=== PATIENT | male | born 1945 | race Caucasian/White ===

== ENCOUNTER 2017-01-04 06:16 | Day surgery (SDC) | payer OTHER, MEDICARE ==
[2017-01-04] MEDS ORDERED: ACETAMINOPHEN 325 MG TAB PO PRN (06:22)
[2017-01-04] MEDS ORDERED: ASPIRIN EC 325 MG TAB PO ONE (06:22)
[2017-01-04] MEDS ORDERED: NS 1,000 ML IV SCH (06:22)
[2017-01-04] MEDS ORDERED: NITROGLYCERIN 0.4 MG BTL SL PRN ×2 (06:22→08:24)
--- NOTE | 2017-01-04 06:42 | CPEKG ---
Heart Rate: 84 RR Interval: 714 P-R Interval: 160 QRSD Interval: 108 QT Interval: 404 QTC Interval: 478 P [place]: 44 QRS [place]: -73 T Wave [place]: 104 EKG Severity - ABNORMAL ECG - EKG Impression: VENTRICULAR-PACED COMPLEXES EKG Impression: AGREE WITH ABOVE. NO SIGNIFICANT CHANGE FROM 2015. Electronically Signed By: Mak Faulkner 04-Jan-2017 07:40:23
[2017-01-04 06:54] LABS: % IMMATURE GRANULYOCYTES 0.7 % (0.0-1.1); ABSOLUTE IMMATURE GRANULOCYTES 0.05 10^3/uL (0.00-0.10); ADD DIFF? NO; ADD MORPH? NO; ADD SCAN? NO; ATYPICAL LYMPHOCYTE FLAG 0 (0-99); FRAGMENT RBC FLAG 0 (0-99); HEMATOCRIT 46.3 % (40.0-51.0); HEMOGLOBIN 16.2 g/dL (13.7-17.5); LEFT SHIFT FLG 0 (0-99); LIPEMIA HEMOLYSIS FLAG 90 (0-99); MEAN CELL HEMOGLOBIN 29.7 pg (27.9-34.1); MEAN CELL VOLUME 84.8 fL (81.5-99.8); MEAN PLATELET VOLUME 11.1 fL (8.7-11.7); PLATELET CLUMPS FLAG 0 (0-99); PLATELET COUNT 208 10^3/uL (150-400); RED BLOOD CELL COUNT 5.46 10^6/uL (4.40-6.38); RED CELL DISTRIBUTION WIDTH 13.2 % (11.5-15.2)
[2017-01-04 07:04] LABS: INR 1.08 (0.83-1.16); PROTIME(PATIENT) 13.9 SEC (12.0-15.0)
[2017-01-04 07:05] LABS: APTT 31.5 SEC (23.0-38.0)
[2017-01-04 07:15] LABS: ANION GAP 12 mEq/L (8-16); CALCIUM 9.4 mg/dL (8.5-10.4); CARBON DIOXIDE 24 mEq/l (22-31); CHLORIDE 104 mEq/L (97-110); CHOLESTEROL 206 mg/dL (140-220); CHOLESTEROL/HDL RATIO 5.28 RATIO (1.00-4.97); CREATININE 1.2 mg/dL (0.7-1.3); GLOMERULAR FILTRATION RATE 60; GLUCOSE 107 mg/dL (70-100); HIGH DENSITY LIPOPROTEIN 39 mg/dL (40-65); LDL/HDL RATIO 3.49 RATIO (1.00-3.64); LOW DENSITY LIPOPROTEIN 136 mg/dL (80-100); MAGNESIUM 1.9 mg/dL (1.6-2.3); NON-HIGH DENSITY LIPOPROTEIN 167 mg/dL (90-129); POTASSIUM 4.2 mEq/L (3.5-5.2); SODIUM 140 mEq/L (134-144); TRIGLYCERIDE 159 mg/dL (40-150); VERY LOW DENSITY LIPOPROTEINS 31 mg/dL (8-25)
[2017-01-04] MEDS ORDERED: fentaNYL 100 MCG/2 ML INJ ONE (07:42)
[2017-01-04] MEDS ORDERED: LIDOCAINE 1% 300 MG/30 ML SDV ONE (07:42)
[2017-01-04] MEDS ORDERED: MIDAZOLAM 2 MG/2 ML VIAL ONE (07:43)
[2017-01-04] MEDS ORDERED: IOPAMIDOL (ISOVUE-370) 150 ML BTL IV ONE (07:43)
--- NOTE | 2017-01-04 07:51 | PDHPUP ---
History & Physical Update H&P update statement: This history and physical update is based on an assessment of the patient which was completed after admission or registration (within 24 hours), but prior to the surgery/procedure.
--- NOTE | 2017-01-04 07:53 | PDPROPOC ---
Sedation Plan of Care Sedation Plan of Care: vital signs stable ASA Classification: ASA 3 Planned drugs: fentanyl, midazolam Mallampati Score: Class 2 Mallampati Reference Image: Patient passed 3-3-2 rule?: Yes
[2017-01-04] MEDS ORDERED: ONDANSETRON 4 MG/2 ML VIAL IVP PRN (08:24)
[2017-01-04] MEDS ORDERED: ATROPINE SULFATE 1 MG/10 ML SYR IVP PRN (08:24)
--- NOTE | 2017-01-04 08:31 | SOAPPROG ---
DMITRI Progress Note Assessment/Plan: Assessment: right heart cath with swan minesh catheterization done via Right IJ vein uneventfully. Cardiac cath dictated. Plan: 1)discharge home in two hours. 2)decrease lasix from 40mg po qam to 20mg qam. 3)rest of meds without changes. 4)f/u [facility]F-[facility] in two weeks to reassess. 01/04/17 08:30 Objective: Laboratory Results 01/04/17 06:41 01/04/17 06:41 PT 13.9 SEC (12.0-15.0) 01/04/17 06:41 INR 1.08 (0.83-1.16) 01/04/17 06:41 ICD10 Worksheet Patient Problems: Problems Problem Status Onset Chest pain Acute Dyspnea Acute NICM (nonischemic cardiomyopathy) Acute Pericardial effusion Acute
--- NOTE | 2017-01-04 09:26 | CPIP ---
[f rep st] INVASIVE CARDIAC PROCEDURE DATE OF PROCEDURE: 01/04/2017 PROCEDURE PERFORMED: Right heart catheterization via the right internal jugular vein, with monitorin g [place] catheter hemodynamics. INDICATIONS: Chronic severe nonischemic cardiomyopathy with worsening fatigue and shortness of breat h. Evaluate filling pressures. CONSENT: Signed. Risks, benefits, and alternatives discussed with patient and his . They wishe d to proceed. MEDICATIONS USED DURING PROCEDURE: Lidocaine 7 cc to local skin, plus Versed 1 mg IV and fentanyl 25 mcg IV, with continuous pulse oximetry and hemodynamic monitoring. TECHNICAL DIFFICULTIES: None. DESCRIPTION OF PROCEDURE AND RESULTS: The patient was brought to the labels molder. After adequate sedat ion and sterile prepping of the right neck, a 5-[place] sheath was easily placed in the right internal jugular vein. A monitoring [place] catheter was advanced through the right heart chambers, carefu lly avoiding the pacer wires under fluoroscopy. After hemodynamics were done, the [place] catheter was removed, and the sheath was removed with manual hemostasis. He tolerated the procedure well. RIGHT HEART HEMODYNAMICS: The mean RA is 6, RV 19/6, PA pressure 23/15, with a mean pulmonary artery pressure of 17. The mean pulmonary capillary wedge pressure was 12. The cardiac output and cardiac index estimated by Mark method was 5.8 and 3.0 L/minute, respectively. The estimated arterial satur ation on room air was 95%, and the measured pulmonary artery saturation 77.9%. COMPLICATIONS: None. In particular, fluoroscopy at the end of the case demonstrated no dislodgement of pacer wires and no change in the heart size. There was no evidence of a right apical pneumothora x. IMPRESSIONS: Compensated to slightly dry right heart pressures. NOTE: The patient's home Lasix dose will be decreased from 40 mg to 20 mg per day. The rest of the medications will be unchanged, and he will follow up in the heart failure clinic in 2 weeks to see if he is feeling better. /[id number]/MODL
--- NOTE | 2017-01-04 15:59 | ECHO ---
[email or web address] [address] [address] Main: [phone] Fax: Transthoracic Echocardiogram Name: TEO MILLER MR#: [id number] Study Date: 01/04/2017 Study Time: 09:19 AM Date of : 1945 Age: 71 year(s) Height: 172.7 cm (68 in.) Weight: 81.65 kg (180 lb.) BSA: 1.95 m2 Gender: Male Examination: Echo Indication: Post right heart cath, known cardiomyopathy Image Quality: Contrast: Requested by: Pola Patrick BP: 84 mmHg/56 mmHg Heart Rate: Rhythm: Normal sinus rhythm Indication: Post right heart cath, known cardiomyopathy Procedure Staff Strap Cutting Machine Operator: Gerald Otto Reading Physician: Danilo Desai Requesting Provider: Conclusions: Severely dilated left ventricle. Severely reduced systolic LV function. The ejection fraction is estimated to be 15-20 %. All scored wall segments are hypokinetic. There is a pacemaker lead noted in the right ventricle. The left atrium is mildly dilated. The right atrium is mildly dilated. Mild mitral valve regurgitation is present. Mild to moderate aortic valve regurgitation. Trivial tricuspid valve regurgitation. Measurements: Chambers Valvular Assessment AV/MV Valvular Assessment TV/PV Normal Normal Normal Name Value Range Name Value Range Name Value Range Ao Tiff (MM): 3.7 cm (2.2 cm-3.7 AV Vmax: 0.94 m/s (1 m/s-1.7 TR Vmax: 2.29 mm/s ( - ) cm) m/s) TR PGmax: 21 mmHg ( - ) IVSd (2D): 1.0 cm (0.6 cm-1.1 AV maxP mmHg ( - ) syst. PAP: 26 mmHg ( - ) cm) LVOT Vmax: 0.43 m/s (0.7 m/s-1.1 PV Vmax: 0.88 m/s (0.6 m/s-0.9 LVDd (2D): 6.8 cm (4.2 cm-5.9 m/s) m/s) cm) AR (PHT): 733 ms ( - ) PV PGmax: 3 mmHg ( - ) LVDs (2D): 6.2 cm (2.1 cm-4 MV E Vmax: 0.38 m/s ( - ) cm) MV A Vmax: 0.44 m/s ( - ) LVPWd (2D): 1.0 cm (0.6 cm-1 MV E/A: 0.86 ( - ) cm) LVEF (2D): 17 (>=54 %) EF Range: 15-20 % Continued Measurements: Chambers Valvular Assessment AV/MV Valvular Assessment TV/PV Patient: TEO MILLER Study Date: 01/04/2017 Page 1 of 2 09:19 AM Name Value Name Value Name Value LADs Lon.4 cm MV E/E' Septal: 12.00 CVP (est.): 5 mmHg LA Area: 22.4 cm2 MV E/E' Lateral: 9.90 LA Volume: 64 ml AR Vmax: 3.72 cm/s LA Volume Index: 32.8 ml/m2 Findings: Left Ventricle: Severely dilated left ventricle. Severely reduced systolic LV function. The ejection fraction is estimated to be 15-20 %. All scored wall segments are hypokinetic. Right Ventricle: Normal size right ventricle. Normal RV function. There is a pacemaker lead noted in the right ventricle. Left Atrium: The left atrium is mildly dilated. Right Atrium: The right atrium is mildly dilated. Mitral Valve: Mild mitral valve leaflet calcification is present. Mild mitral valve regurgitation is present. Aortic Valve: The aortic valve is tri-leaflet. Mild to moderate aortic valve regurgitation. Tricuspid Valve: The tricuspid valve appears normal. Trivial tricuspid valve regurgitation. Pulmonic Valve: The pulmonic valve is normal in appearance and function. Aorta: The aorta is normal. Pericardium: No pericardial effusion. (No Signature Object) Wall Motion Scores Patient: TEO MILLER Study Date: 01/04/2017 Page 2 of 2 09:19 AM [id number]
== END 2017-01-04 10:30 | disposition home or self-care (01) ==
LOC: FCATH 06:16
PROVIDERS: ATTEND Internal Medicine Cardiovascular Disease
PROC: 4A023N6 Measurement of Cardiac Sampling and Pressure, Right Heart, Percutaneous Approach (ICD-10-PCS; principal; 2017-01-04)
PROC: 4A1239Z Monitoring of Cardiac Output, Percutaneous Approach (ICD-10-PCS; principal; 2017-01-04)
DX: I50.22 Chronic systolic (congestive) heart failure (principal); I48.0 Paroxysmal atrial fibrillation; Z95.810 Presence of automatic (implantable) cardiac defibrillator; Z85.72 Personal history of non-Hodgkin lymphomas
CPT/HCPCS: J1644; J2250; J3010; Q9967

== ENCOUNTER 2017-08-03 10:01 | Day surgery (SDC) | payer OTHER, MEDICARE ==
[2017-08-03] MEDS ORDERED: NALOXONE HCL 0.4 MG/ML INJ IVP PRN (10:09)
[2017-08-03] MEDS ORDERED: fentaNYL 100 MCG/2 ML INJ IVP PRN (10:09)
[2017-08-03] MEDS ORDERED: MEPERIDINE 25 MG/ML SYR IVP PRN (10:09)
[2017-08-03] MEDS ORDERED: MIDAZOLAM 2 MG/2 ML VIAL IVP PRN (10:09)
[2017-08-03] MEDS ORDERED: FLUMAZENIL 0.5 MG/5 ML MDV IVP PRN (10:09)
[2017-08-03] MEDS ORDERED: NALOXONE HCL 0.4 MG/ML INJ ONE (10:15)
[2017-08-03] MEDS ORDERED: fentaNYL 100 MCG/2 ML INJ ONE (10:15)
[2017-08-03] MEDS ORDERED: FLUMAZENIL 0.5 MG/5 ML MDV IVP ONE (10:15)
[2017-08-03] MEDS ORDERED: MIDAZOLAM 2 MG/2 ML VIAL ONE (10:15)
[2017-08-03] MEDS ORDERED: NS 1,000 ML IV SCH (10:15)
[2017-08-03] MEDS ORDERED: LIDOCAINE 1% 300 MG/30 ML SDV ONE (11:25)
--- NOTE | 2017-08-03 11:26 | PDPROPOC ---
Sedation Plan of Care Sedation Plan of Care: vital signs stable, mental status noted, patient educated of risks, benefits, alternatives, patient can tolerate sedation ASA Classification: ASA 1 Planned drugs: fentanyl, midazolam Mallampati Score: Class 2 Mallampati Reference Image: Patient passed 3-3-2 rule?: Yes
--- NOTE | 2017-08-03 11:28 | PDGENHP ---
History & Physical Chief Complaint: NON HODGKINS LYMPHOMA, PET AVID LN History of Present Illness: B CELL LYMPHOMA, PORT PLACEMENT, PACEMAKER, DEBIBULATOR. Pertinent Past, Social, Family History: N/A Relevant Physical Exam: NO PAIN. Cardiorespiratory Assessment: RRR, CTA
--- NOTE | 2017-08-03 12:43 | PDRADPN ---
Radiology Procedure Note Date of Procedure: 08/03/17 Radiologist: Shelbi Ashley Anesthesia: IV Sedation Pre-op Diagnosis: B cell Lymphoma Post-op Diagnosis: same Indication: PET avid RT supraclavicular LN Procedure: CT and US guided RT LN bx Finding(s): adequate samples obtained Inf/Abcess present in the surg proc area at time of surgery?: No Specimen(s): RT supraclavicular LN cores
[2017-08-03] MEDS ORDERED: ACETAMINOPHEN 325 MG TAB PO PRN (12:47)
[2017-08-03] MEDS ORDERED: ONDANSETRON 4 MG/2 ML VIAL IVP PRN (12:47)
[2017-08-03 13:55] VITALS: BP 110/77
== END 2017-08-03 13:54 | disposition home or self-care (01) ==
LOC: FIMAGING 10:01
PROVIDERS: ATTEND Internal Medicine Hematology & Oncology
PROC: 07B33ZX Excision of Right Upper Extremity Lymphatic, Percutaneous Approach, Diagnostic (ICD-10-PCS; principal; 2017-08-03 12:43)
DX: C83.30 Diffuse large B-cell lymphoma, unspecified site (principal); R21 Rash and other nonspecific skin eruption; I42.9 Cardiomyopathy, unspecified; Z95.0 Presence of cardiac pacemaker
CPT/HCPCS: 88184-90; 88185-91; J2250; J2310; J3010